=== PATIENT | female | born 1945 | race African-American/Black ===

== ENCOUNTER 2025-07-20 08:22 | Emergency (ER) | payer MEDICAID ==
[~2025-07-20] VITALS: Ht 160 cm; Wt 60.0 kg
[2025-07-20 08:25] VITALS: TEMP 36.8; O2SAT 98
[2025-07-20] MEDS ORDERED: NIFE10CA59 MT (08:45)
[2025-07-20] MEDS ORDERED: ENAL-79 MT (08:45)
[2025-07-20] MEDS ORDERED: ENALAPRIL 5MG TABLET PO SCH (08:45)
[2025-07-20] MEDS: NIFEDIPINE 10MG CAPSULE PO ONE (09:49)
[2025-07-20] MEDS: LISINOPRIL 20MG TABLET PO SCH (09:49)
[2025-07-20 09:52] VITALS: BP 186/83; PULSE 67; RESP 16; O2SAT 100
== END 2025-07-20 09:52 | disposition home or self-care (01) ==
LOC: ER 08:22
DX: I10 Essential (primary) hypertension (principal); Z76.0 Encounter for issue of repeat prescription; Z79.899 Other long term (current) drug therapy
CPT/HCPCS: 93005; 99283